=== PATIENT | female | born 1950 | race Caucasian/White ===

== ENCOUNTER → 2024-04-02 | Outpatient (CLI) | payer OTHER, SELFPAY ==
--- NOTE | 2024-04-02 13:00 | XR_ITS ---
Examination: Breast ultrasound, unilateral, right complete Date and time of exam: 2024, 1:47 PM INDICATIONS: BI-RADS 4 suspicious mass 10:00 position right breast, 10 x 7 x 10 mm on ultrasound July 26, 2023, biopsy, negative Technique: Real-time robertson scale ultrasonographic imaging performed right breast including all 4 quadrants as well as nipple retroareolar and axillary region. Findings: 10:00 oval mass indistinct margins 11 x 7 x 11 mm 24 mm right axillary lymph node IMPRESSION: BI-RADS Category 4: Suspicious for malignancy, nodule 10:00 position right breast,. Recommend rebiopsy of this nodule ultrasound-guided
--- NOTE | 2024-04-02 13:30 | XR_ITS ---
Examination: Diagnostic digital mammography, bilateral Computer aided detection 3-D breast Tomosynthesis, bilateral Date and time of exam: April 02, 2024 1408 hours INDICATIONS: Right breast sonogram July 26, 2043 suspicious mass 10:00 position right breast, negative right breast biopsy 12/10/2023, 10 mm nodule upper left breast on mammogram July 26, 2023 Technique: Nonmagnified MLO, CC views of the breasts to been obtained, reconstructed from 3-D Tomosynthesis images. R2 computer aided detection program utilized for evaluation of suspicious masses and/or abnormal calcifications. 3-D Tomosynthesis images obtained. Findings: The breasts are heterogeneously dense, which may obscure small masses Please see the right breast sonogram report today January 30, 2025 indicating persistent suspicious nodule 10:00 position right breast although breast marker is present Stable circumscribed nodule outer left breast No suspicious left breast mass Impression: BI-RADS Category 4: Suspicious for malignancy Please see the right breast sonogram report today indicating persistent 10:00 nodule right breast 11 x 7 x 11 mm, recommend rebiopsy of this mass under ultrasound guidance
== END | disposition home or self-care (01) ==
PROVIDERS: PCP Family Medicine; Referring Provider Surgery; Visit Provider Surgery
DX: R92.341 Mammographic extreme density, right breast (principal); N63.11 Unspecified lump in the right breast, upper outer quadrant
CPT/HCPCS: 76641; 77062; 77066; G0279